=== PATIENT | female | born 2005 | race African-American/Black ===

== ENCOUNTER 2024-11-29 00:58 | Observation (INO) | payer OTHER ==
[2024-11-29] MEDS ORDERED: Acetaminophen 650 MG Suppository PR PRN (03:20)
[2024-11-29] MEDS ORDERED: Acetaminophen 325 MG TAB PO PRN (03:20)
[2024-11-29] MEDS ORDERED: Calcium Carbonate 500 MG ChewTAB PO PRN (03:20)
[2024-11-29] MEDS ORDERED: Ondansetron PF 4 MG/2 ML Vial IVP PRN (03:20)
[2024-11-29] MEDS ORDERED: Ondansetron ODT 4 MG TAB PO PRN (03:20)
[2024-11-29] MEDS ORDERED: Glucagon 1 MG/ML KIT IM PRN (03:22)
[2024-11-29] MEDS ORDERED: Dextrose 5% in Water 1,000 ML IV PRN (03:22)
[2024-11-29] MEDS ORDERED: Dextrose 50% Abboject 50 ML SYRINGE SLOW IVP PRN (03:22)
[2024-11-29] MEDS: Dextrose 5%-Lactated Ringers 1,000 ML IV SCH (03:33)
[2024-11-29] MEDS: Lorazepam 0.5 MG TAB PO SCH (04:04)
[2024-11-29 04:44] LABS: #Basophils 0.03 10x3/uL (0.0-0.2); %Basophils 0.4 % (0.0-1.0); %Eosinophils 1.9 % (0.0-10.0); %Lymphocytes 33.5 % (21.0-51.0); %Monocytes 15.2 % (0.0-10.0); %Neutrophils 48.7 % (42.0-75.0); Hematocrit 33.4 % (36.0-47.0); Hemoglobin 11.3 g/dL (12.0-16.0); Mean Corpuscular HGB CONC 33.8 g/dL (32.0-36.0); Mean Corpuscular Hemoglobin 28.6 pg (27.0-31.0); Mean Corpuscular Volume 84.6 fL (78.0-98.0); Mean Platelet Volume 10.8 fL (7.4-10.4); Platelet Count 301 10x3/uL (130-400); RBC Distribution Width 11.9 % (11.5-14.5); Red Blood Cell (RBC) Count 3.95 mill/uL (4.20-5.40)
[2024-11-29 05:14] LABS: Hemoglobin A1c 10.6 % (4.0-6.0)
[2024-11-29 05:29] LABS: ALT (SGPT) 10 U/L (8-55); AST (SGOT) 15 U/L (5-34); Albumin 3.2 g/dL (3.5-5.0); Alkaline Phosphatase 73 U/L (40-110); Anion Gap 11 mmol/L (10-20); BUN (Urea Nitrogen) 24 mg/dL (7.0-18.7); Bilirubin, Total 1.2 mg/dL (0.2-1.2); Calc. Creatinine Clearance 57 mL/min (70-130); Calcium 8.5 mg/dL (7.8-10.44); Carbon Dioxide 29 mmol/L (22-29); Chloride 95 mmol/L (98-107); Estimated GFR 62; Globulin 3.8 g/dL (2.4-3.5); Glucose 143 mg/dL (70-105); Potassium 2.7 mmol/L (3.5-5.1); Sodium 132 mmol/L (136-145)
[2024-11-29] MEDS ORDERED: Electrolyte Replacement Protocol 1 EACH FS SCH (06:31)
[2024-11-29] MEDS: Potassium Chloride 20 MEQ in Premix 1 BAG IVPB SCH (06:57)
[2024-11-29] MEDS ORDERED: Potassium Chloride 20 MEQ in Premix 1 BAG IVPB SCH (08:00)
[2024-11-29] MEDS: Insulin Glargine 30 UNITS/0.3 ML VIAL SC SCH (09:19)
[2024-11-29] MEDS: Famotidine 20 MG TAB PO SCH (09:20)
[2024-11-29] MEDS: Famotidine/PF 20 mg/2ml Vial SLOW IVP SCH (09:22)
[2024-11-29 09:53] LABS: Amphetamine Not Detected (NotDetected); Barbiturates Screen Not Detected (NotDetected); Benzodiazepine Screen Not Detected (NotDetected); Cocaine Metabolite Screen Not Detected (NotDetected); Methadone Not Detected (NotDetected); Methamphetamine Not Detected (NotDetected); Opiate Screen Not Detected (NotDetected); Oxycodone Screen Not Detected (NotDetected); Phencyclidine (PCP) Not Detected (NotDetected); THC/Cannabinoid Screen Detected (NotDetected); Tricyclic Screen Not Detected (NotDetected)
[2024-11-29] MEDS: Potassium Chloride 20 MEQ TAB PO SCH ×3 (10:01→22:41)
[2024-11-29] MEDS: Insulin Lispro 100 UNIT/ML 10 ML VIAL SC PRN ×2 (12:37→19:46)
[2024-11-29 16:36] LABS: Potassium 3.3 mmol/L (3.5-5.1)
[2024-11-29] MEDS: hydrOXYzine Pamoate 25 mg Capsule PO SCH (20:20)
[2024-11-30 08:32] VITALS: BP 121/80; TEMP 97.2
[2024-11-30 10:53] LABS: #Basophils 0.03 10x3/uL (0.0-0.2); %Basophils 0.5 % (0.0-1.0); %Eosinophils 3.9 % (0.0-10.0); %Lymphocytes 34.8 % (21.0-51.0); %Monocytes 11.3 % (0.0-10.0); %Neutrophils 49.2 % (42.0-75.0); Hematocrit 35.3 % (36.0-47.0); Hemoglobin 12.1 g/dL (12.0-16.0); Mean Corpuscular HGB CONC 34.3 g/dL (32.0-36.0); Mean Corpuscular Hemoglobin 28.8 pg (27.0-31.0); Mean Platelet Volume 11.3 fL (7.4-10.4); Platelet Count 306 10x3/uL (130-400); RBC Distribution Width 11.9 % (11.5-14.5)
[2024-11-30 10:57] LABS: Anion Gap 12 mmol/L (10-20); BUN (Urea Nitrogen) 9 mg/dL (7.0-18.7); Calc. Creatinine Clearance 67 mL/min (70-130); Calcium 8.3 mg/dL (7.8-10.44); Carbon Dioxide 22 mmol/L (22-29); Chloride 105 mmol/L (98-107); Estimated GFR 75; Glucose 273 mg/dL (70-105); Potassium 4.2 mmol/L (3.5-5.1); Sodium 135 mmol/L (136-145)
== END 2024-11-30 12:36 | disposition home or self-care (01) ==
LOC: T4-B 03:04
PROVIDERS: ADMIT Student in an Organized Health Care Education/Training Program; ATTEND Internal Medicine
DX: K52.9 Noninfective gastroenteritis and colitis, unspecified (principal); E87.6 Hypokalemia; E10.9 Type 1 diabetes mellitus without complications; N17.9 Acute kidney failure, unspecified; F12.90 Cannabis use, unspecified, uncomplicated; Z79.4 Long term (current) use of insulin; Z79.899 Other long term (current) drug therapy
CPT/HCPCS: 36415; 36416; 80048; 80053; 80306; 82010; 83036; 85025; G0378; J1815; J3480; Q0177